=== PATIENT | female | born 1980 | race African-American/Black ===

== ENCOUNTER 2018-01-28 20:21 | Emergency (ER) | payer BC, OTHER ==
[2018-01-28] MEDS: ACETAMINOPHEN 500 MG TAB PO (21:16)
== END 2018-01-28 21:30 | disposition home or self-care (01) ==
LOC: FTE 20:21
DX: M79.10 Myalgia, unspecified site (principal); F17.210 Nicotine dependence, cigarettes, uncomplicated
CPT/HCPCS: 99282

== ENCOUNTER 2018-06-05 17:19 | Emergency (ER) | payer BC ==
[2018-06-05] MEDS: LIDOCAINE 2% VISC 15 ML CUP PO (20:46)
[2018-06-05] MEDS: ONDANSETRON (ODT) 4 MG TAB ODT (20:48)
[2018-06-05] MEDS: DEXAMETHASONE 10 MG/ML 1 ML INJ IM (21:54)
== END 2018-06-05 23:15 | disposition home or self-care (01) ==
LOC: FTE 17:19
DX: J06.9 Acute upper respiratory infection, unspecified (principal); J02.8 Acute pharyngitis due to other specified organisms; B97.89 Other viral agents as the cause of diseases classified elsewhere; Z87.891 Personal history of nicotine dependence
CPT/HCPCS: 96372; 99284-25